=== PATIENT | female | born 1940 ===

== ENCOUNTER 2017-06-18 13:06 | Inpatient (IN) | payer MEDICARE, MEDICAID ==
[2017-06-18 13:06] VITALS: PULSE 74
[2017-06-18] MEDS ORDERED: Albuterol-Ipratrop 3 mg / 0.5 (3 ml) UD INH STA (13:59)
[2017-06-18] MEDS ORDERED: Albuterol-Ipratrop 3 mg / 0.5 (3 ml) UD ONE ×2 (14:10→18:49)
--- NOTE | 2017-06-18 14:41 | ED PDOC ---
HPI: SOB/CHF/COPD Time Seen by Provider: 06/18/17 13:41 Chief Complaint (Nursing): Flu-like Symptoms Chief Complaint (Provider): SOB History Per: Patient History/Exam Limitations: no limitations Onset/Duration Of Symptoms: Days (7) Additional Complaint(s): Pt reports nonproductive cough X 7 days, associated with SOB and "noisy breathing", runny nose, subjective fever. Denies CP, nausea, vomiting. Pt recently returned from [place] last week. Past Medical History Vital Signs: Last Vital Signs Temp 97.5 F L 06/19/17 08:34 Pulse 110 H 06/19/17 08:32 Resp 18 06/19/17 08:32 BP 152/87 H 06/19/17 08:32 Pulse Ox 97 06/19/17 08:32 - Medical History PMH: Anemia, Anxiety, Arthritis, Asthma, Atrial Fibrillation, Cardia Arrhythmia , Colonic Polyps, Depression, HTN, Hypercholesterolemia, Osteoporosis Denies: HIV, Chronic Kidney Disease - Surgical History Surgical History: Coronary Stent - Family History Family History: States: Unknown Family Hx - Social History Current smoker - smoking cessation education provided: No Alcohol: None - Home Medications Home Medications: Ambulatory Orders Medication Instructions Recorded Albuterol HFA [Ventolin HFA 90 2 puff IH Q6H PRN 05/06/14 mcg/actuation (8 g)] Dabigatran [Pradaxa] 150 mg PO BID 05/06/14 Esomeprazole Magnesium [Nexium] 40 mg PO DAILY 05/06/14 Fluticasone Nasal [Flonase] 1 spray JOYCE DAILY PRN 05/06/14 Memantine [Namenda] 28 mg PO DAILY 05/06/14 Montelukast Sodium 10 mg PO HS 05/06/14 Pravastatin Sodium [Pravachol] 20 mg PO HS 05/06/14 Zolpidem Tartrate 10 mg PO DAILY 12/08/14 Telmisartan [Micardis] 40 mg PO DAILY 08/24/15 diltiaZEM [Cardizem] 240 mg PO DAILY 08/24/15 Metoprolol Tartrate [Lopressor] 50 mg PO BID #60 tab 08/26/15 Dexlansoprazole [Dexilant] 60 mg PO DAILY 06/18/17 Donepezil [Aricept] 5 mg pe PO DAILY 06/18/17 Fluticasone/Vilanterol [Breo 1 puff INH DAILY 06/18/17 Ellipta 100-25 Mcg INH] Latanoprost [Latanoprost] 1 drop OU HS 06/18/17 Levocetirizine Dihydrochloride 5 mg PO DAILY 06/18/17 [Xyzal] Pramipexole [Mirapex] 0.5 mg PO DAILY 06/18/17 Sertraline [Zoloft] 100 mg pe PO DAILY 06/18/17 Spironolact/Hydrochlorothiazid 1 tab PO DAILY 06/18/17 [Spironolactone-Hctz 25-25 Tab] - Allergies Allergies/Adverse Reactions: Allergies Allergy/AdvReac Type Severity Reaction Status Date / Time iodine Allergy SHORTNESS Verified 04/29/16 11:06 OF BREATH Curb-65 Severity Score - CURB-65 Severity Score Confusion: No Bun >19mg/dl (>7mmol/L): No Respiratory Rate greater than/equal to 30: No Systolic BP <90 or Diastolic BP less than/equal 60mmHg: No Age >64: Yes Curb-65 Score: 1 Percentage 30-day mortality: 2.7% Review of Systems Constitutional: Positive for: Fever (Subjective). Negative for: Chills Cardiovascular: Negative for: Chest Pain, Palpitations Respiratory: Positive for: Cough, Shortness of Breath, Wheezing. Negative for: Pleuritic Pain, Sputum Gastrointestinal: Negative for: Nausea, Vomiting, Abdominal Pain, Diarrhea Genitourinary Female: Negative for: Dysuria, Hematuria Musculoskeletal: Negative for: Neck Pain, Back Pain Skin: Negative for: Rash, Lesions Neurological: Negative for: Headache Physical Exam - Physical Exam Appears: Positive for: In Acute Distress (Mild respiratory) Skin: Positive for: Normal Color, Warm, Dry Eye Exam: Positive for: Normal appearance, EOMI, PERRL Cardiovascular/Chest: Positive for: Irregularly Irregular Respiratory: Positive for: Wheezing, Respiratory Distress (Mild). Negative for : Decreased Breath Sounds, Accessory Muscle Use, Crackles, Rhonchi Extremity: Positive for: Pedal Edema, Swelling ((L>R)). Negative for: Tenderness, Deformity Neurologic/Psych: Positive for: Alert, Oriented - Laboratory Results Result Diagrams: 06/18/17 14:50 06/18/17 14:50 - ECG O2 Sat by Pulse Oximetry: 99 Medical Decision Making Medical Decision Makin yo female with SOB. - labs - EKG - CXR - Albuterol/atrovent nebs - Solumedrol - Doppler ultrasound Disposition - Clinical Impression Clinical Impression: Weakness, Asthma - Disposition Disposition: Transfer of Care Disposition Time: 15:30 Condition: STABLE Patient Signed Over To: Lupillo Dumont
[2017-06-18 14:59] LABS: BASO # 0.1 K/uL (0.0-0.2); BASO % 2.1 % (0.0-2.0); EOS # 0.1 K/uL (0.0-0.7); EOS % 3.2 % (0.0-4.0); HEMOGLOBIN 12.5 g/dL (12.0-16.0); LYMPH # 1.5 K/uL (1.0-4.3); LYMPH % 38.4 % (20.0-40.0); MEAN CELL VOLUME 92.3 fl (81.0-99.0); MEAN CORPUSCULAR HEMOGLOBIN 30.4 pg (27.0-31.0); MEAN CORPUSCULAR HGB CONC 32.9 g/dL (33.0-37.0); MEAN PLATELET VOLUME 9.9 fl (7.2-11.7); MONO # 0.4 K/uL (0.0-0.8); MONO % 11.8 % (0.0-10.0); NEUT # 1.7 K/uL (1.8-7.0); NEUT % 44.5 % (50.0-75.0); NRBC % 0.1 % (0.0-0.0); RBC 4.13 Mil/uL (3.80-5.20); RED CELL DISTRIBUTION WIDTH 14.7 % (11.5-14.5); WHITE BLOOD COUNT 3.8 K/uL (4.8-10.8)
[2017-06-18 15:10] LABS: INR 1.3 (0.9-1.2); PARTIAL THROMBOPLASTIN TIME 46.2 Seconds (25.6-37.1); PROTHROMBIN TIME 13.9 Seconds (9.8-13.1)
[2017-06-18 15:15] LABS: ALB/GLOB RATIO 1.2 (1.0-2.1); ALBUMIN 3.8 g/dL (3.5-5.0); ALT/SGPT 28 U/L (9-52); AST/SGOT 20 U/L (14-36); BLOOD UREA NITROGEN 14 mg/dl (7-17); GFR AFRICAN-AMERICAN > 60; GFR NON-AFRICAN AMERICAN > 60
--- NOTE | 2017-06-18 15:49 | ED PDOC ---
- Laboratory Results Result Diagrams: 06/18/17 14:50 06/18/17 14:50 - ECG O2 Sat by Pulse Oximetry: 99 Pulse Ox Interpretation: Normal - Radiology X-Ray: Read By Radiologist X-Ray Interpretation: No Acute Disease - CT Scan/US US Other Rad Studies (CT/US): Read By Radiologist Other Rad Interpretation: no dvt - Progress ED Course And Treament: 1538: Took over care from Dr. Mancia. Ron on labs and imaging. Here with asthma symptoms and recent travel with leg swelling. PCP Dr. Sedrick Mishra. 1840: Pt. feels better but still some wheezes after walking. Will need admit and more tx. Spoke with Dr. Rincon. Will admit and give further orders when pt. reaches floor. Disposition - Clinical Impression Clinical Impression: Weakness, Asthma - POA Present On Arrival: None - Disposition Disposition: Hospitalized as Observation Patient Disposition Time: 18:04 Condition: FAIR
[2017-06-18] MEDS ORDERED: Iodixanol 320 MG/ML 100 ML BOTTLE IV ONE (16:12)
--- NOTE | 2017-06-18 16:27 | US ---
PROCEDURE: Bilateral lower extremity venous duplex Doppler. HISTORY: BLE swelling COMPARISON: None available. TECHNIQUE: Bilateral common femoral, superficial femoral, popliteal and posterior tibial veins were evaluated. Flow was assessed with color Doppler, compressibility, assessment of phasic flow and augmentation response. FINDINGS: Normal compressibility, augmentation and phasic blood flow is been identified in the veins defined below bilaterally. COMMON FEMORAL VEIN: Right CFV: Unremarkable. Left CFV: Unremarkable. SUPERFICIAL FEMORAL VEIN: Right SFV: Unremarkable. Left SFV: Unremarkable. POPLITEAL VEIN: Right Popliteal: Unremarkable. Left Popliteal: Unremarkable. POSTERIOR TIBIAL VEIN: Right PTV: Unremarkable. Left PTV: Unremarkable. OTHER FINDINGS: None. IMPRESSION: No ultrasound evidence of deep venous thrombosis in the lower extremities bilaterally.
[2017-06-18 16:46] LABS: ABG ALLEN TEST YES; ARTERIAL BLOOD GAS O2 SAT 99.8 % (95-98); ARTERIAL BLOOD GAS PCO2 33 mm/Hg (35-45); ARTERIAL BLOOD GAS PH 7.44 (7.35-7.45); ARTERIAL BLOOD GAS PO2 89 mm/Hg (80-100); ARTERIAL BLOOD GAS TCO2 23.4 mmol/L (22-28)
[2017-06-18 18:03] LABS: B-TYPE NATRIURETIC PEPTIDE 474 pg/ml (0-900)
--- NOTE | 2017-06-18 18:05 | RAD ---
HISTORY: SOB COMPARISON: Chest radiographs 08/24/2015. FINDINGS: LUNGS: No active pulmonary disease. PLEURA: No significant pleural effusion identified, no pneumothorax apparent. CARDIOVASCULAR: Stable cardiomegaly. No pulmonary derangement. OSSEOUS STRUCTURES: No significant abnormalities. VISUALIZED UPPER ABDOMEN: Normal. OTHER FINDINGS: None. IMPRESSION: No acute cardiopulmonary disease is identified in the interval. Cardiomegaly appears stable.
[2017-06-18] MEDS ORDERED: Albuterol-Ipratrop 3 mg / 0.5 (3 ml) UD IH STA (18:40)
--- NOTE | 2017-06-18 18:55 | CARD ---
APPROVED REPORT EKG Measurement Heart [id number] <Conclusion> Atrial fibrillation Abnormal ECG
[2017-06-18] MEDS: Albuterol-Ipratrop 3 mg / 0.5 (3 ml) UD INH SCH (23:36)
[2017-06-18] MEDS: Latanoprost 0.005% Opht SOUTION OU SCH (23:43)
[2017-06-18] MEDS: Pravastatin Sodium 20 MG TAB PO SCH (23:43)
[2017-06-19] MEDS: Albuterol-Ipratrop 3 mg / 0.5 (3 ml) UD INH SCH ×3 (05:00→11:28)
[2017-06-19] MEDS: guaiFENesin DM 200 mg-20 mg/10 ml UD PO PRN (05:03)
[2017-06-19] MEDS: Pantoprazole 40 mg EC Tab PO SCH (08:27)
--- NOTE | 2017-06-19 12:40 | CP.PCM.HP ---
History of Present Illness - History of Present Illness History of Present Illness: This is a 76 y/o female admitted for asthma exacerbation. Claims that she has been having wheezing and dry cough which started as soon as she arrived from [place] last week. She denies having any fever Medical Hx HTN, asthma atrial fibrillation, Osteoporosis hyperlipidemia On pradaxa Present on Admission - Present on Admission Any Indicators Present on Admission: No History of DVT/PE: No History of Uncontrolled Diabetes: No Urinary Catheter: No Decubitus Ulcer Present: No Review of Systems - Constitutional Additional comments: headaches - Respiratory Respiratory: Cough Past Patient History - Past Medical History & Family History Past Medical History?: Yes - Past Social History Alcohol: None - CARDIAC Hx Atrial Fibrillation: Yes Hx Cardia Arrhythmia: Yes Hx Hypercholesterolemia: Yes Hx Hypertension: Yes - PULMONARY Hx Asthma: Yes - NEUROLOGICAL Hx Neurological Disorder: No - HEENT Hx HEENT Problems: Yes Hx Cataracts: Yes - RENAL Hx Chronic Kidney Disease: No - ENDOCRINE/METABOLIC Hx Endocrine Disorders: No - HEMATOLOGICAL/ONCOLOGICAL Hx Anemia: Yes Hx Human Immunodeficiency Virus (HIV): No - INTEGUMENTARY Hx Dermatological Problems: Yes (Recent back rash) - MUSCULOSKELETAL/RHEUMATOLOGICAL Hx Arthritis: Yes Hx Osteoporosis: Yes - GASTROINTESTINAL Hx Gastrointestinal Disorders: Yes - GENITOURINARY/GYNECOLOGICAL Hx Genitourinary Disorders: No - PSYCHIATRIC Hx Anxiety: Yes Hx Depression: Yes - SURGICAL HISTORY Hx Coronary Stent: Yes - ANESTHESIA Hx Anesthesia: Yes Hx Anesthesia Reactions: No Hx Malignant Hyperthermia: No Meds Allergies/Adverse Reactions: Allergies Allergy/AdvReac Type Severity Reaction Status Date / Time iodine Allergy SHORTNESS Verified 04/29/16 11:06 OF BREATH Physical Exam - Head Exam Head Exam: NORMAL INSPECTION - ENT Exam ENT Exam: Mucous Membranes Moist - Cardiovascular Exam Cardiovascular Exam: Irregular Rhythm - GI/Abdominal Exam GI & Abdominal Exam: Normal Bowel Sounds - Neurological Exam Neurological exam: CN II-XII Intact, Oriented x3 Results - Vital Signs Recent Vital Signs: Last Vital Signs Temp 97.5 F L 06/19/17 08:34 Pulse 110 H 06/19/17 09:00 Resp 18 06/19/17 08:32 BP 152/87 H 06/19/17 08:32 Pulse Ox 99 06/19/17 09:47 - Labs Result Diagrams: 06/18/17 14:50 06/18/17 14:50 Labs: Laboratory Results - last 24 hr 06/18/17 06/18/17 06/18/17 14:50 14:50 14:50 WBC 3.8 L RBC 4.13 Hgb 12.5 Hct 38.1 MCV 92.3 D MCH 30.4 MCHC 32.9 L RDW 14.7 H Plt Count 254 MPV 9.9 Neut % (Auto) 44.5 L Lymph % (Auto) 38.4 [place] % (Auto) 11.8 H Eos % (Auto) 3.2 Baso % (Auto) 2.1 H Neut # (Auto) 1.7 L Lymph # (Auto) 1.5 [place] # (Auto) 0.4 Eos # (Auto) 0.1 Baso # (Auto) 0.1 PT INR APTT D-Dimer, Quantitative pCO2 pO2 HCO3 ABG pH ABG Total CO2 ABG O2 Saturation ABG Base Excess Abel Test ABG Potassium A-a O2 Difference Glucose Lactate FiO2 Sodium 143 Potassium 4.0 Chloride 106 Carbon Dioxide 25 Anion Gap 16 BUN 14 Creatinine 0.7 Est GFR ( Amer) > 60 Est GFR (Non-Af Amer) > 60 Random Glucose 83 Calcium 9.0 Total Bilirubin 0.7 AST 20 ALT 28 Alkaline Phosphatase 47 Troponin I NT-Pro-B Natriuret Pep Total Protein 7.1 Albumin 3.8 Globulin 3.3 Albumin/Globulin Ratio 1.2 Arterial Blood Potassium Influenza Typ A,B (EIA) Negative for flu a/b 06/18/17 06/18/17 06/18/17 14:50 14:50 15:47 WBC RBC Hgb Hct MCV MCH MCHC RDW Plt Count MPV Neut % (Auto) Lymph % (Auto) [place] % (Auto) Eos % (Auto) Baso % (Auto) Neut # (Auto) Lymph # (Auto) [place] # (Auto) Eos # (Auto) Baso # (Auto) PT 13.9 H INR 1.3 H APTT 46.2 H D-Dimer, Quantitative 128 pCO2 33 L pO2 89 HCO3 24.0 ABG pH 7.44 ABG Total CO2 23.4 ABG O2 Saturation 99.8 H ABG Base Excess -1.1 Abel Test Yes ABG Potassium 3.3 L A-a O2 Difference 19.0 Glucose 142 H Lactate 3.1 H FiO2 21.0 Sodium 136.0 Potassium Chloride 112.0 H Carbon Dioxide Anion Gap BUN Creatinine Est GFR ( Amer) Est GFR (Non-Af Amer) Random Glucose Calcium Total Bilirubin AST ALT Alkaline Phosphatase Troponin I NT-Pro-B Natriuret Pep Total Protein Albumin Globulin Albumin/Globulin Ratio Arterial Blood Potassium 3.3 L Influenza Typ A,B (EIA) 06/18/17 17:40 WBC RBC Hgb Hct MCV MCH MCHC RDW Plt Count MPV Neut % (Auto) Lymph % (Auto) [place] % (Auto) Eos % (Auto) Baso % (Auto) Neut # (Auto) Lymph # (Auto) [place] # (Auto) Eos # (Auto) Baso # (Auto) PT INR APTT D-Dimer, Quantitative pCO2 pO2 HCO3 ABG pH ABG Total CO2 ABG O2 Saturation ABG Base Excess Abel Test ABG Potassium A-a O2 Difference Glucose Lactate FiO2 Sodium Potassium Chloride Carbon Dioxide Anion Gap BUN Creatinine Est GFR ( Amer) Est GFR (Non-Af Amer) Random Glucose Calcium Total Bilirubin AST ALT Alkaline Phosphatase Troponin I < 0.0120 NT-Pro-B Natriuret Pep 474 Total Protein Albumin Globulin Albumin/Globulin Ratio Arterial Blood Potassium Influenza Typ A,B (EIA) Assessment & Plan (1) Asthma Status: Acute (2) Headache Status: Acute (3) Atrial fibrillation with rapid ventricular response Status: Chronic (4) Hypertension Status: Chronic - Assessment and Plan (Free Text) Plan: start solumderol iv Neb tx cough medications Ibuprofen for headaches cont pradaxa,
[2017-06-19] MEDS ORDERED: Albuterol-Ipratrop 3 mg / 0.5 (3 ml) UD INH PRN (14:00)
[2017-06-19 16:55] VITALS: RESP 18
[2017-06-19] MEDS: Latanoprost 0.005% Opht SOUTION OU SCH (21:12)
[2017-06-19] MEDS: Pravastatin Sodium 20 MG TAB PO SCH (21:12)
[2017-06-20] MEDS: Pantoprazole 40 mg EC Tab PO SCH (08:57)
[2017-06-20] MEDS ORDERED: diltiaZEM 240 mg/24 Hours CD Cap PO SCH (09:00)
[2017-06-20] MEDS: guaiFENesin DM 200 mg-20 mg/10 ml UD PO PRN (09:01)
--- NOTE | 2017-06-20 11:03 | CP.PCM.DIS ---
Provider - Provider Date of Admission: 06/19/17 16:04 Attending physician: Steven Rincon MD Time Spent in preparation of Discharge (in minutes): 30 Diagnosis - Discharge Diagnosis (1) Asthma Status: Acute (2) Headache Status: Acute (3) Atrial fibrillation with rapid ventricular response Status: Chronic (4) Hypertension Status: Chronic Hospital Course - Lab Results Lab Results: Micro Results 06/18/17 14:00 Blood-Venous Blood Culture - Preliminary NO GROWTH AFTER 24 HOURS 06/18/17 14:30 Blood-Venous Blood Culture - Preliminary NO GROWTH AFTER 24 HOURS Most Recent Lab Values WBC 3.8 K/uL (4.8-10.8) L 06/18/17 14:50 RBC 4.13 Mil/uL (3.80-5.20) 06/18/17 14:50 Hgb 12.5 g/dL (12.0-16.0) 06/18/17 14:50 Hct 38.1 % (34.0-47.0) 06/18/17 14:50 MCV 92.3 fl (81.0-99.0) D 06/18/17 14:50 MCH 30.4 pg (27.0-31.0) 06/18/17 14:50 MCHC 32.9 g/dL (33.0-37.0) L 06/18/17 14:50 RDW 14.7 % (11.5-14.5) H 06/18/17 14:50 Plt Count 254 K/uL (130-400) 06/18/17 14:50 MPV 9.9 fl (7.2-11.7) 06/18/17 14:50 Neut % (Auto) 44.5 % (50.0-75.0) L 06/18/17 14:50 Lymph % (Auto) 38.4 % (20.0-40.0) 06/18/17 14:50 [place] % (Auto) 11.8 % (0.0-10.0) H 06/18/17 14:50 Eos % (Auto) 3.2 % (0.0-4.0) 06/18/17 14:50 Baso % (Auto) 2.1 % (0.0-2.0) H 06/18/17 14:50 Neut # (Auto) 1.7 K/uL (1.8-7.0) L 06/18/17 14:50 Lymph # (Auto) 1.5 K/uL (1.0-4.3) 06/18/17 14:50 [place] # (Auto) 0.4 K/uL (0.0-0.8) 06/18/17 14:50 Eos # (Auto) 0.1 K/uL (0.0-0.7) 06/18/17 14:50 Baso # (Auto) 0.1 K/uL (0.0-0.2) 06/18/17 14:50 PT 13.9 Seconds (9.8-13.1) H 06/18/17 14:50 INR 1.3 (0.9-1.2) H 06/18/17 14:50 APTT 46.2 Seconds (25.6-37.1) H 06/18/17 14:50 D-Dimer, Quantitative 128 ng/mlDDU (0-230) 06/18/17 14:50 pCO2 33 mm/Hg (35-45) L 06/18/17 15:47 pO2 89 mm/Hg (80-100) 06/18/17 15:47 HCO3 24.0 mmol/L (21-28) 06/18/17 15:47 ABG pH 7.44 (7.35-7.45) 06/18/17 15:47 ABG Total CO2 23.4 mmol/L (22-28) 06/18/17 15:47 ABG O2 Saturation 99.8 % (95-98) H 06/18/17 15:47 ABG Base Excess -1.1 mmol/L (-2.0-3.0) 06/18/17 15:47 Abel Test Yes 06/18/17 15:47 ABG Potassium 3.3 mmol/L (3.6-5.2) L 06/18/17 15:47 A-a O2 Difference 19.0 mm/Hg 06/18/17 15:47 Sodium 136.0 mmol/L (132-148) 06/18/17 15:47 Chloride 112.0 mmol/L (98-107) H 06/18/17 15:47 Glucose 142 mg/dL (65-105) H 06/18/17 15:47 Lactate 3.1 mmol/L (0.7-2.1) H 06/18/17 15:47 FiO2 21.0 % 06/18/17 15:47 Sodium 143 mmol/l (132-148) 06/18/17 14:50 Potassium 4.0 MMOL/L (3.6-5.0) 06/18/17 14:50 Chloride 106 mmol/L (98-107) 06/18/17 14:50 Carbon Dioxide 25 mmol/L (22-30) 06/18/17 14:50 Anion Gap 16 (10-20) 06/18/17 14:50 BUN 14 mg/dl (7-17) 06/18/17 14:50 Creatinine 0.7 mg/dl (0.7-1.2) 06/18/17 14:50 Est GFR ( Amer) > 60 06/18/17 14:50 Est GFR (Non-Af Amer) > 60 06/18/17 14:50 Random Glucose 83 mg/dL (65-105) 06/18/17 14:50 Calcium 9.0 mg/dL (8.4-10.2) 06/18/17 14:50 Total Bilirubin 0.7 mg/dl (0.2-1.3) 06/18/17 14:50 AST 20 U/L (14-36) 06/18/17 14:50 ALT 28 U/L (9-52) 06/18/17 14:50 Alkaline Phosphatase 47 U/L (38-126) 06/18/17 14:50 Troponin I < 0.0120 ng/mL (0.00-0.120) 06/18/17 17:40 NT-Pro-B Natriuret Pep 474 pg/ml (0-900) 06/18/17 17:40 Total Protein 7.1 G/DL (6.3-8.2) 06/18/17 14:50 Albumin 3.8 g/dL (3.5-5.0) 06/18/17 14:50 Globulin 3.3 gm/dL (2.2-3.9) 06/18/17 14:50 Albumin/Globulin Ratio 1.2 (1.0-2.1) 06/18/17 14:50 Arterial Blood Potassium 3.3 mmol/L (3.6-5.2) L 06/18/17 15:47 Influenza Typ A,B (EIA) Negative for flu a/b (NEGATIVE) 06/18/17 14:50 - Hospital Course Hospital Course: This is a 76 y/o female admitted for asthma excaerbation. Sx started a week before Er visist. Had no fever. She has a hx of atrial fib and is on Pradaxa She was treated with Solumedrol and duoneb neb tx. She complained of headaches and was sent home on Fioricet. She was discharged in stable condition. Discharge Exam - Head Exam Head Exam: NORMAL INSPECTION - Eye Exam Eye Exam: Normal appearance - Respiratory Exam Respiratory Exam: NORMAL BREATHING PATTERN - Cardiovascular Exam Cardiovascular Exam: Irregular Rhythm - GI/Abdominal Exam GI & Abdominal Exam: Normal Bowel Sounds - Neurological Exam Neurological exam: Alert, CN II-XII Intact, Oriented x3 - Psychiatric Exam Psychiatric exam: Normal Mood Discharge Plan - Follow Up Plan Condition: STABLE Disposition: HOME/ ROUTINE Instructions: Weakness (ED) Additional Instructions: Rx given advised to follow up with her PMD, Dr Bright Mishra , in 1 week.
[2017-06-20 12:12] VITALS: BP 131/82; PULSE 82; TEMP 98.2; O2SAT 97
[2017-06-20] MEDS: Apap-Butalbital-Caffeine 325-50-40mg Tab PO SCH ×3 (13:18→13:27)
--- NOTE | 2017-06-21 07:35 | PQF GENQUE ---
, Please clarify type of asthma: if known Mild intermittent Mild persistent Moderate persistent Severe persistent Other (please specify) Clinically unable to determine Unknown D/C Summary documentation includes the following: admitted for asthma excaerbation. Sx started a week before Er visist. She has a hx of atrial fib and is on Pradaxa She was treated with Solumedrol and duoneb neb tx. This form is a permanent part of the medical record Clarification of your documentation is requested to better reflect the severity of illness and intensity of treatment of your patient. Indicators present [] Specify: [] [] Specify: [] [] Specify: [] [] Specify: [] Location in the medical record that reflects the above clinical findings: [] Treatment Provided: [] PHYSICIAN'S RESPONSE Based on your medical judgment of the clinical indicators outlined above please clarify the following: [] Practitioner response [] If unable to determine, please check the box, sign and date. Present On Admission (POA) Indicator: [] Present at the time of admission [] Not present at the time of admission [] Clinically Undetermined In responding to this query, please exercise your independent professional judgment. The fact that a question is asked does not imply that any particular answer is desired or expected. Thank you for your clarification on this documentation. If you have any questions please call. * Thank you, Gabbi Sepulveda RN ext. #[phone] MTDD
== END 2017-06-20 14:30 | disposition home or self-care (01) | DRG 203 ==
LOC: H.ER 13:06 → H.ERHOLD 18:43 → H.TEL 21:14 → OBSVTOIN 06-19 16:04
PROVIDERS: ADMIT Family Medicine; ATTEND Family Medicine
DX: J45.41 Moderate persistent asthma with (acute) exacerbation (principal); I48.91 Unspecified atrial fibrillation; Z79.01 Long term (current) use of anticoagulants; E78.00 Pure hypercholesterolemia, unspecified; E78.5 Hyperlipidemia, unspecified; I10 Essential (primary) hypertension; Z91.041 Radiographic dye allergy status; Z95.5 Presence of coronary angioplasty implant and graft; F41.9 Anxiety disorder, unspecified; F32.9 Major depressive disorder, single episode, unspecified; M19.90 Unspecified osteoarthritis, unspecified site; R51 Headache; M81.0 Age-related osteoporosis without current pathological fracture

== ENCOUNTER 2018-03-31 09:43 | Day surgery (SDC) | payer MEDICARE, MEDICAID ==
[2018-03-31 10:46] VITALS: BMI 36.6
[2018-03-31] MEDS ORDERED: Bupivacaine 0.25% Inj(30mL) IJ ONE (10:47)
[2018-03-31] MEDS ORDERED: ceFAZolin IV 1 gm in Dextrose 1 GM/50 ML BAG IVPB ONE (10:47)
[2018-03-31] MEDS ORDERED: Lidocaine 1% Inj (20ml) IJ ONE (10:47)
--- NOTE | 2018-03-31 10:51 | CP.PCM.PN ---
Subjective - Date & Time of Evaluation Date of Evaluation: 03/31/18 Time of Evaluation: 10:50 - Subjective Subjective: Podiatry progress note for Dr. Oropeza 77 y/o female patient was seen and evaluated in [facility] prior to surgery to the right foot and ankle due to arthritis. patient states she has had pain to the right ankle for many years now. Patient reports pain is worse with ambulation. Patient has PMHx of A fib, HTN, Hyperlipidemia, anxiety, OA. Patient states she last drank around 3 PM yesterday. patient denies any adverse reactions to anesthesia in the past. PMHx: A fib, HTN, Hyperlipidemia, anxiety, OA PSHx: arthroscopes to right knee, total left knee replacement, Colon resection Allergies: Iodine and Latex Social Hx: denies ETOH or alcohol use Objective - Vital Signs/Intake and Output Vital Signs (last 24 hours): Temp Pulse Resp BP Pulse Ox 97.5 F L 98 H 18 133/60 99 03/31/18 10:46 03/31/18 10:46 03/31/18 10:46 03/31/18 10:46 03/31/18 10:46 - Medications Medications: Current Medications Bupivacaine HCl (Marcaine 0.25%) 20 ml IJ ONCE ONE Stop: 03/31/18 10:48 Cefazolin Sodium 1 gm/ Sodium (Chloride) 100 mls @ 100 mls/hr IVPB ONCE ONE; Protocol Stop: 03/31/18 11:46 Sodium Chloride (Sodium Chloride 0.9%) 1,000 mls @ 0 mls/hr IV .Q0M MARIS Stop: 04/01/18 10:47 Lidocaine HCl (Lidocaine 1% (20ml)) 20 ml IJ ONCE ONE Stop: 03/31/18 10:48 - Constitutional Appears: Well, Non-toxic, No Acute Distress - Head Exam Head Exam: ATRAUMATIC, NORMOCEPHALIC - Extremities Exam Additional comments: Right lower extremity Exam VASC: DP and PT 2/4 bilaterally, CFT less than 3 seconds X 10, TG within normal limits, minimal edema to right ankle ORTHO: pain with range of motion of the ankle joint, pain on palpation diffuse to the medial and lateral ankles, pain with inversion and eversion, pain along the peroneal tendons MSK 5/5 NEURO: grossly intact DERM: varicosities seen to bilateral lower extremities, no open lesions, no clinical signs of infection - Neurological Exam Neurological Exam: Alert, Awake, Oriented x3 - Psychiatric Exam Psychiatric exam: Normal Affect, Normal Mood Assessment and Plan - Assessment and Plan (Free Text) Assessment: 77 y/o female seen and evaluated for surgery to the right ankle Plan: Pt was seen and examined in SDS Pt NPO status was confirmed All pre-op testing and clearance in chart Pt has exhausted all conservative treatment at this time and is opting for surgical intervention Pt was explained procedure and post-operative course All pt's questions were answered to satisfaction No guarantees were made Pt understands all risks, benefits and complications of procedure Pt will follow-up with Dr. Oropeza within 1 week of surgery
[2018-03-31] MEDS ORDERED: Sodium Chloride 0.9% 1,000 ML IV SCH (11:00)
--- NOTE | 2018-03-31 11:00 | CP.SDSHP ---
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 Evaluated Today:Candidate for Anesthesia & Procedure: Yes Short Stay Discharge - Short Stay Discharge Admitting Diagnosis/Reason for Visit: S93.493 Disposition: HOME/ ROUTINE Additional Instructions (Diet, Activity): -Patient in good/stable condition for discharge home -Pt to resume medications per medical reconciliation -Resume regular diet -Please keep dressing clean, dry, & intact to surgical site -Use plastic bag over bandage for showering -Wear post op shoe at all times when ambulating -Call clinic if you see signs of infection (redness, swelling, malodor) -Please make an appointment to see Dr. Oropeza in office/clinic within 1 week for post-op check Progress Note/Discharge Note with Instructions: - Patient evaluated bedside in recovery - After surgical procedure patient in NAD - (+) Void, (+) Appetite - Capillary refill time <3s and NVS intact. - Patient denies complaints at this time. - Post operative instructions and plan of care explained to patient at length. - Patient. acknowledges verbal understanding. - Patient stable for DC per podiatric surgery
[2018-03-31] MEDS ORDERED: Bupivacaine HCl 0.5% PF (30 ml) Inj ONE ×2 (11:50→14:21)
[2018-03-31] MEDS ORDERED: Lidocaine 1% Inj (20ml) ONE (11:51)
[2018-03-31] MEDS ORDERED: Propofol 10 mg/ml Inj (20 ML) ONE (12:16)
[2018-03-31] MEDS ORDERED: Lidocaine 2% MPF (5 ml) Inj ONE (12:17)
[2018-03-31] MEDS ORDERED: Lactated Ringer's 1,000 ML IV ONE ×2 (12:30→14:55)
[2018-03-31] MEDS ORDERED: EPINEPHrine 1 mg/ml (1:1000) Inj ONE (12:47)
[2018-03-31] MEDS ORDERED: EPINEPHrine 1 mg/ml (1:1000) Inj IV ONE (13:15)
[2018-03-31] MEDS ORDERED: Oxycodone/Acetaminophen 5/325 mg Tab PO PRN ×2 (14:04)
[2018-03-31] MEDS ORDERED: Sevoflurane - Inhalation Anesthetic Liq (250 ml) ONE (14:12)
[2018-03-31] MEDS ORDERED: Bupivacaine 0.5% 50 ML IJ ONE (14:20)
--- NOTE | 2018-03-31 14:51 | PCM.SURG1 ---
Surgeon's Initial Post Op Note - Surgeon's Notes Surgeon: Dr. Oropeza, DPM District Manager In Training: Dr. Amezcua, PGY3, Dr. Key, PGy2 Type of Anesthesia: General Endo Anesthesia Administered By: Dr. 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 I: postoperative popliteal block. M: Arthrex internal brace, arthrex mini suture taks, integra biofix allograft, 4-0 vicryl, 4-0 monocryl, 4-0 Nylon Post-Operative Diagnosis: same Operation Performed: Right ankle arthroscopy and debridement, lateral ankle stabilization with arthrex internal brace Specimen/Specimens Removed: none Estimated Blood Loss: EBL {In ML}: 1 Blood Products Given: N/A Drains Used: No Drains Post-Op Condition: Good Date of Surgery/Procedure: 03/31/18 Time of Surgery/Procedure: 14:51
[2018-03-31] MEDS ORDERED: HYDROmorphone 0.5 mg/0.5 ml ISec IVP PRN (14:59)
[2018-03-31] MEDS ORDERED: Lactated Ringer's 1,000 ML IV SCH (15:00)
--- NOTE | 2018-03-31 15:03 | PCM.ANESB2 ---
Popliteal Nerve Block - Popliteal Nerve Block Date of Procedure: 03/31/18 Anesthesiologist: Wilder Fontana Pre-Procedure Diagnosis: right ankle stabilization Post-Procedure Diagnosis: same Procedure Performed: Popliteal Nerve Block Right - Procedure Popliteal Nerve Block: This procedure was explained to the patient that it is for post-operative pain management. Consent was obtained after a thorough discussion with the patient regarding the benefits and possible complications of local anesthetic block of the sciatic nerve at the popliteal level. The patient was brought to the operati ng room and standard monitors are applied. Time-out was held with the circulating nurse to confirm the correct surgery and the appropriate block. After applying oxygen by nasal cannula and administering IV Sedation, patient's operative leg was gently raised and supported and the groove in between the biceps femoris and vastus lateralis muscles was carefully palpated. The skin approximately 8cm above the popliteal crease was then marked. The ultrasound transducer was then applied to the posterior thigh approximately 8cm above the popliteal crease in the transverse plane and the sciatic nerve before its division was visualized lateral to the popliteal artery and in between the bicep femoris and semimembranosus/semitendinosus muscles. After identification, the lateral portion of the thigh was prepped with Betadine solution three times and Lidocaine 1% was injected subcutaneously for topical anesthesia. At this point, a # 21 gauge Stimuplex insulated 4 inch needle was inserted into pre-marked area and advanced in a perpendicular direction. The needle was inserted above the ultrasound transducer in-plane towards the sciatic nerve in a [id number] direction. Needle advancement was performed carefully under direct ultrasound visualization. Nerve stimulator was used and dorsiflexion of the _right____ foot was elicited at a current of _0.3____ MA. After repeated negative aspiration, __5___cc of __0.5___ % ___bupiv was injected and this was flowed with _25 cc of _0.5 % __bupiv . Under ultrasound guidance the local anesthetics were observed surrounding sciatic nerve . The needle was removed intact and sterile dressing was applied. The patient tolerated the popliteal nerve block well with stable vital signs and was subsequently prepared for the surgery.
[2018-03-31 15:14] VITALS: O2SAT 100
[2018-03-31] MEDS ORDERED: Trimethobenzamide 200 mg/2 mL Inj IM PRN (15:57)
[2018-03-31 17:10] VITALS: PULSE 98; RESP 18
[2018-03-31 18:01] VITALS: BP 124/80; TEMP 97.6
--- NOTE | 2018-04-01 08:52 | RAD ---
Date of service: 03/31/2018 PROCEDURE: Right ankle radiographs. HISTORY: s/p right ankle surgery COMPARISON: None. FINDINGS: BONES: Plantar heel spur. JOINTS: Normal. No dislocation. SOFT TISSUES: Normal. OTHER FINDINGS: Postop changes anterior soft tissues the ankle mortise. IMPRESSION: Postop changes anterior soft tissues the ankle mortise.
--- NOTE | 2018-04-04 07:55 | OP ---
PROCEDURE DATE: 03/31/2018 SURGEON: Haroon Oropeza DPM. BILINGUAL EXECUTIVE ASSISTANT: Sabra Amezcua DPM, PGY-3; Gabby Key DPM, PGY-2. DAIRY TESTER: Dr. Fontana. ANESTHESIA: General. PREOPERATIVE DIAGNOSES: 1. Right ankle chronic hypertrophic synovitis. 2. 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 POSTOPERATIVE DIAGNOSES: 1. Right ankle chronic hypertrophic synovitis. 2. 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 PROCEDURES PERFORMED: 1. Right ankle arthroscopy with debridement. 2. Right ankle lateral ligament stabilization and repair. INDICATIONS: The patient is a 77-year-old female with the above-mentioned diagnosis. The patient has exhausted multiple points of conservative treatment at this time and now requires surgical interventions. The patient signed the consent after careful explanation of risks, benefits, complications, and alternatives for surgical procedure. No guarantees were given nor implied. The patient was brought into the operating room and placed on the operating room table in a supine position. A well-padded pneumatic thigh tourniquet was applied to the patient's right thigh. A time-out was performed for identification of the correct patient and procedure. Once anesthesia was achieved, the right side of the ankle was then prepped and draped in normal sterile manner. The patient's right lower extremity was then exsanguinated with an Esmarch, and the patient's thigh tourniquet was inflated with 350 mmHg, and the procedure began. PROCEDURE #1: Right ankle arthroscopy with debridement: Attention was directed to the dorsal aspect of the patient's right ankle where the ankle was infiltrated with approximately 30 mL of saline mixed with epinephrine. Next, utilizing a surgical marking pen, anatomical landmarks were marked such as tibialis anterior tendon and the medial and lateral gutters were identified. Next, utilizing a #11 blade, a medial portal was created. Utilizing hemostat down to the level of the ankle joint, the ankle joint was then entered. Next, the 2.7 scope was inserted into the medial portal. There was an abundance of hypertrophic synovium as well as fibrous bands within the ankle joint. The articular cartilage of talus was visualized, and approximately 30% was denuded of cartilage with severe osteoarthritic changes noted. Next, a lateral portal was created utilizing a #15 blade and knee was tracked down to the level of ankle joint. Next, a trocar was placed into the lateral portal and triangulated along with a 2.7 scope. Next, a 3.5 aggressive shaver was inserted into the lateral ankle portal and debridement of the hypertrophic synovium and fibrous bands began. The ankle was then inspected for any osteochondral defect and no osteochondral defects were noted. Next, a 2.7 scope and a 3.5 aggressive shaver with fresh portals and debridement of the medial aspect of the ankle was performed. A 2.7 scope and a 3.5 aggressive shaver were then removed from each portal. The ankle was then flushed with copious amounts of normal sterile saline, and the skin was reapproximated and coapted with 4-0 nylon. PROCEDURE #2: Right ankle lateral ligament stabilization and repair: Attention was directed to the lateral aspect of the ankle joint overlying the anterior talofibular ligament where it was palpated and located. A curvilinear incision was created overlying the ATFL location at the level of the lateral gutter of the ankle joint, approximately 5 cm in length. The incision was carried through the subcutaneous tissue with care being taken to identify and retract all vital neurovascular structures. All bleeders were cauterized and ligated as necessary. Utilizing a #15 blade, capsular structures were incised in a vertical fashion overlying the roof of the sinus tarsi. Once the capsular structures were incised, it was noted that the ATFL was partially torn, and the distal portals were identified from the talus with few fibers intact. At this time, the ankle joint was inverted, and the articular cartilage and lateral gutter were inspected for any osteochondral lesions, and none were noted. Next, a 2.7 mm drill bit from the InternalBrace kit by [employer] was utilized to create a drill hole 1.5 cm proximal to the distal tip of the fibula. The drill hole was then tapped with a 3.5 mm barney, at least 2 turns to securely fit into the fibula. Afterwards, a 3.5 mm SwiveLock was loaded with a FiberTape and placed into the drill hole. Next, a 3.4 mm drill hole was created and then nonarticulating surface of the talus directed approximately 45 degrees to prevent violating the ankle joint. Then, a 4.75 mm SwiveLock tap was utilized. The FiberTape was then satisfied to the operative field to perform the modified Brostrom. A 1.8 drill bit from [employer] lateral ankle stabilization set was utilized to create one drill hole in the lateral aspect of the fibula and one 2.4 mm SutureTak was placed into the drill hole created. Incisions were then set to the remaining fibers of the anterior talofibular ligament, and the capsular structures in an [id number] suture fashion. While performing the technique, the foot was placed in dorsiflexion and everted position, as the sutures were tied down which allowed for reapproximation and tightening of the ATFL. The FiberTape of the InternalBrace was then set through the eyelet of the 4.75 mm SwiveLock and the ankle was inserted into the talar tunnel with a mallet to assist for proper placement to get into the talar. To avoid over tensioning, a hemostat was placed in between the FiberTape. Excess FiberTape was cut and removed from the operative field. The ankle was stressed and eversion and inversion with excellent stability noted. The incision site was then copiously irrigated with sterile normal saline. Next, Integra BioFix flow allograft was then injected into the lateral incision site of the right ankle. A subcutaneous tissue was then reapproximated with a 3-0 and 4-0 Vicryl, and the skin was reapproximated with 4-0 Monocryl. Dressing to the right ankle was applied using Steri-Strips, 4 x 4's, gauze, Lauro, and Babar bandage. POSTOPERATIVE CONDITION: The patient tolerated the anesthesia and the procedure well and was escorted to recovery room with vital signs stable and neurovascular status intact to the right lower extremity. The patient will follow up with Dr. Oropeza's office on an outpatient basis. Sabra Amezcua DPM Haroon Oropeza DPM
== END 2018-03-31 19:05 | disposition home or self-care (01) ==
LOC: H.OPSURG 09:43
PROVIDERS: ATTEND Podiatrist
DX: M65.871 Other synovitis and tenosynovitis, right ankle and foot (principal); I10 Essential (primary) hypertension; E66.9 Obesity, unspecified; I48.91 Unspecified atrial fibrillation; E78.5 Hyperlipidemia, unspecified; F41.9 Anxiety disorder, unspecified; Z96.652 Presence of left artificial knee joint; Z90.49 Acquired absence of other specified parts of digestive tract; M19.071 Primary osteoarthritis, right ankle and foot
CPT/HCPCS: 29897; 29899; 73610; 88304; 97161; G8978; G8979; J0171; J0690; J2405; J2704; J2765; J3010; J7120